=== PATIENT | male | born 1960 | race Caucasian/White ===

== ENCOUNTER 2020-05-15 14:33 | Emergency (ER) | payer MEDICAID ==
[~2020-05-15] VITALS: Ht 175.3 cm; Wt 77.3 kg
[2020-05-15 14:41] VITALS: BP 144/94
[2020-05-15] MEDS ORDERED: PRED20TA PO (16:10)
[2020-05-15] MEDS ORDERED: methylPREDNISolone sod succ 125mg/2ml vial IM ONE (16:10)
== END 2020-05-15 16:24 | disposition home or self-care (01) ==
LOC: ER 14:34
DX: L23.7 Allergic contact dermatitis due to plants, except food (principal); J43.9 Emphysema, unspecified; F12.90 Cannabis use, unspecified, uncomplicated; Z72.0 Tobacco use; Z79.899 Other long term (current) drug therapy
CPT/HCPCS: 96372; 99283; J2930

== ENCOUNTER 2020-05-22 14:15 | Emergency (ER) | payer MEDICAID ==
[~2020-05-22] VITALS: Ht 177.8 cm; Wt 78.8 kg
[~2020-05-22 14:15] MED LIST: PRED20TA PO
[2020-05-22 14:21] VITALS: BP 139/79
[2020-05-22] MEDS ORDERED: PRED10TA23 PO (14:49)
[2020-05-22] MEDS ORDERED: HYDR28CR14 TOP (14:49)
[2020-05-22] MEDS ORDERED: triamcinolone acetonide 40mg/ml inj IM ONE (14:50)
== END 2020-05-22 15:22 | disposition home or self-care (01) ==
LOC: ER 14:16
DX: L23.7 Allergic contact dermatitis due to plants, except food (principal); J43.9 Emphysema, unspecified; F12.90 Cannabis use, unspecified, uncomplicated; Z88.6 Allergy status to analgesic agent; Z88.1 Allergy status to other antibiotic agents; Z79.899 Other long term (current) drug therapy
CPT/HCPCS: 96372; 99283; J3301